=== PATIENT | female | born 2000 | race Two or more races ===

== ENCOUNTER 2022-03-25 13:37 | Outpatient (CLI) | payer BC ==
[~2022-03-25 13:37] MED LIST: Iopamidol 370 76% 100 ML VIAL ONE
== END 2022-03-25 13:38 | disposition home or self-care (01) ==
LOC: CT 13:37
PROVIDERS: ATTEND Specialist
DX: R22.1 Localized swelling, mass and lump, neck (principal); R91.8 Other nonspecific abnormal finding of lung field
CPT/HCPCS: 71260; Q9967

== ENCOUNTER 2022-05-18 12:04 | Outpatient (CLI) | payer BC ==
[2022-05-18 13:24] LABS: BHCG - Serum Negative (NEGATIVE); Pregs Control Background? CLEAR/WHITE (CLR/WHITE); Pregs Control Bar Appear? YES (CONTROL BAR)
== END 2022-05-18 12:05 | disposition home or self-care (01) ==
LOC: LABBT 12:04
PROVIDERS: ATTEND Specialist
DX: Z01.812 Encounter for preprocedural laboratory examination (principal); R22.1 Localized swelling, mass and lump, neck
CPT/HCPCS: 84703; 85014

== ENCOUNTER 2022-05-20 07:32 | Day surgery (SDC) | payer BC ==
[2022-05-19 10:52] VITALS: BMI 43.3
[2022-05-20] MEDS ORDERED: Lidocaine 1% (PF) 30 ML VIAL ONE (09:15)
[2022-05-20] MEDS ORDERED: EPINEPHrine 1 MG/ML AMP ONE (09:15)
[2022-05-20] MEDS ORDERED: Fentanyl 250 MCG/5 ML VIAL ONE (10:01)
[2022-05-20] MEDS ORDERED: PROPOFOL 200 MG/20 ML VIAL ONE (10:26)
[2022-05-20] MEDS ORDERED: Ketorolac Tromethamine 30 MG/ML VIAL ONE (10:26)
[2022-05-20] MEDS ORDERED: Ondansetron PF 4 MG/2 ML Vial ONE (10:26)
[2022-05-20] MEDS ORDERED: Glycopyrrolate 0.2 MG/ML 5 ML SYRINGE ONE (10:26)
[2022-05-20] MEDS ORDERED: ePHEDrine 50 MG/ML VIAL ONE (10:26)
[2022-05-20] MEDS ORDERED: Dexamethasone 20 MG/5 ML VIAL ONE (10:26)
== END 2022-05-20 14:27 | disposition home or self-care (01) ==
LOC: SDC 07:32
PROVIDERS: ATTEND Specialist
DX: I89.8 Other specified noninfective disorders of lymphatic vessels and lymph nodes (principal); J45.909 Unspecified asthma, uncomplicated; Z91.041 Radiographic dye allergy status
CPT/HCPCS: 88184; 88307; 88312; 88341; 88342; J0171; J1100; J1885; J2001; J2405; J2704; J3010; J3490

== ENCOUNTER 2022-12-16 09:31 | Emergency (ER) | payer BC ==
[2022-12-16] MEDS ORDERED: Ketorolac Tromethamine 30 MG/ML VIAL ONE (09:51)
[2022-12-16] MEDS ORDERED: Ondansetron PF 4 MG/2 ML Vial ONE (09:51)
[2022-12-16 10:03] LABS: Hemoglobin 13.2 g/dL (12.0-16.0); Mean Corpuscular HGB CONC 32.4 g/dL (32.0-36.0); Mean Corpuscular Hemoglobin 25.5 pg (27.0-31.0); Mean Corpuscular Volume 78.7 fl (78.0-98.0); Mean Platelet Volume 9.7 fL (7.4-10.4); Platelet Count 448 10x3/uL (130-400); RBC Distribution Width 13.9 % (11.5-14.5); Red Blood Cell (RBC) Count 5.17 mill/uL (4.20-5.40); White Blood Cell (WBC) Count 6.5 10x3/uL (4.8-10.8)
[2022-12-16 10:10] LABS: Delete Auto Diff?? YES; Manual Diff?? YES
[2022-12-16 10:21] LABS: Bacteria/HPF None Seen HPF (None Seen); Bilirubin Negative (Negative); Blood, Urine Negative (Negative); CAUTI Indications for Culture Pelvic or flank pain; Clarity Clear (Clear); Glucose, Urine (Dipstick) Normal (Negative); Ketone, Urine Trace mg/dL (Negative); Leukocyte Negative Leu/uL (Negative); Nitrite Negative (Negative); Protein, Urine (Dipstick) 10 mg/dL (Neg-Trace); RBC/HPF 0-3 HPF (0-3); Specific Gravity, Urine 1.021 (1.002-1.036); Urobilinogen Normal mg/dL (Less than 2); WBC/HPF 0-3 HPF (0-3); pH, Urine 5.5 (5.0-9.0)
[2022-12-16 10:22] LABS: Urine Culture Reflex No No
[2022-12-16 10:41] LABS: Band 3 % (5-11); Burr Cells SLIGHT = 2-5 cells HPF (0-1); CellaVision Operator ID LAB.GE; Eosinophils 2 % (0-10); Giant Platelets 1.9 % (0-5); Lymphocytes 31 % (21-51); Microcytosis SLIGHT = 6-15 cells HPF (0-5); Monocytes 5 % (0-10); Neutrophil 51 % (42-75); Platelet Adequacy Comment Platelets Increased; Polychromasia SLIGHT = 2-3 cells HPF (0-2); Reactive Lymphocytes 7 % (0-10); Total Cell Count 103
[2022-12-16 10:48] LABS: ALT (SGPT) 69 U/L (8-55); AST (SGOT) 78 U/L (5-34); Albumin 4.3 g/dL (3.5-5.0); Alkaline Phosphatase 83 U/L (40-110); Anion Gap 16 mmol/L (10-20); BUN (Urea Nitrogen) 7 mg/dL (7.0-18.7); Bilirubin, Total 0.2 mg/dL (0.2-1.2); Calc. Creatinine Clearance 0 mL/min (70-130); Calcium 9.5 mg/dL (7.8-10.44); Carbon Dioxide 22 mmol/L (22-29); Chloride 105 mmol/L (98-107); Estimated GFR 110; Globulin 3.3 g/dL (2.4-3.5); Glucose 143 mg/dL (70-105); Lipase 26 U/L (8-78); Potassium 3.4 mmol/L (3.5-5.1); Protein, Total 7.6 g/dL (6.0-8.3); Sodium 140 mmol/L (136-145)
[2022-12-16] MEDS ORDERED: diphenhydrAMINE 50 MG/ML VIAL ONE (10:49)
[2022-12-16] MEDS ORDERED: Famotidine/PF 20 mg/2ml Vial ONE (10:50)
[2022-12-16] MEDS ORDERED: methylPREDNISolone Sod Succ 40 MG VIAL ONE (10:50)
[2022-12-16 11:08] LABS: BHCG - Serum Negative (NEGATIVE); Pregs Control Background? CLEAR/WHITE (CLR/WHITE); Pregs Control Bar Appear? YES (CONTROL BAR)
[2022-12-16] MEDS ORDERED: Iopamidol-370 76% 500 ML MDV (1 ML CHARGE) ONE (15:10)
== END 2022-12-16 13:50 | disposition home or self-care (01) ==
LOC: ERS 09:31
DX: R10.11 Right upper quadrant pain (principal)
CPT/HCPCS: 74177; 80053; 81001; 83690; 84703; 85025; 96361; 96374; 96375; J1200; J1885; J2405; J2920; Q9967; S0028